=== PATIENT | female | born 1990 | race Caucasian/White ===

== ENCOUNTER → 2018-04-07 | Outpatient (CLI) | payer OTHER ==
[2018-04-07 10:21] VITALS: BP 101/63; PULSE 66; TEMP 98.5; BMI 20.5
--- NOTE | 2018-04-07 10:55 | P.GSHP ---
History of Present Illness H&P Date: 04/07/18 Patient is a 27 year old white female who breast fed two children, she finished about one year ago. She than decided she wanted to have augmentation. On a routine exam she felt two lumps under her right nipple. She saw her shuttle truck driver and felt her nodes under her right arm were enlarge. She had an ultrasound at [facility] and told felt benign and to watch for changes and to re- evaluate in 6 months. She is very anxious about it and is checking constantly. she feels soreness under her right arm. No nipple discharge. She had soreness of both breast before her ovulation cycle, and before her periods. She doesn't usually have this type of pain. No pain now. family history; 1. paternal grandmother paternal great aunts to the patient, 7 sisters with breast cancer past surgical history: 1. T&A 2. muscle biopsy left arm medical history: 1. anxiety scoial history: smoke: none alcohol: rare drugs: none menstral: 14 : two first at 21 breast fed both for > year periods regular: having peroid now - Constitutional Constitutional: Denies chills, Denies fever - EENT Eyes: denies blurred vision, denies pain Ears: deny: decreased hearing, tinnitus Ears, nose, mouth and throat: Reports headache, Denies sore throat - Breasts Breasts: bilateral: as per HPI - Cardiovascular Cardiovascular: Denies chest pain, Denies shortness of breath - Respiratory Respiratory: Denies cough, Denies 7 - Gastrointestinal Comment: IBS Gastrointestinal: Reports diarrhea, Denies abdominal pain, Denies nausea, Denies vomiting - Genitourinary (Female) Genitourinary: Denies dysuria, Denies hematuria - Musculoskeletal Musculoskeletal: Denies myalgias - Integumentary Comment: HIVES AT TIMES Integumentary: Denies pruritus, Denies rash - Neurological Neurological: Denies numbness, Denies weakness - Endocrine Comment: 5 pounds weight loss Endocrine: Reports weight change, Denies fatigue - Hematologic/Lymphatic Comment: none - Allergic/Immunologic Allergic/Immunologic: Reports seasonal allergies Past Medical History Past Medical History: Asthma History of Any Multi-Drug Resistant Organisms: None Reported Past Surgical History: Adenoidectomy, Tonsillectomy Additional Past Surgical History / Comment(s): MUSCLE BX LEFT UPPER ARM Past Psychological History: Anxiety Smoking Status: Never smoker - Past Family History Mother Additional Family Medical History / Comment(s): CPT2;. myotonia congenita Brother(s) Family Medical History: Asthma Medications and Allergies Home Medications Medication Instructions Recorded Confirmed Type Calcium Phos/Vit D3/Mag Oxide 3 cap PO DAILY 04/07/18 04/07/18 History [Posture-D Caplet] Ibuprofen [Motrin] 800 mg PO DAILY PRN 04/07/18 04/07/18 History tiZANidine [Zanaflex] 2 mg PO DAILY PRN 04/07/18 04/07/18 History Surgical - Exam Vital Signs Temp Pulse BP Pulse Ox 98.5 F 66 101/63 97 04/07/18 10:15 04/07/18 10:15 04/07/18 10:15 04/07/18 10:15 - General moderate distress - Eyes normal ocular movement, no icteric - ENT no hearing loss, no congestion - Neck no masses, trachea midline - Respiratory normal respiratory effort, clear to auscultation - Cardiovascular Rhythm: regular Heart Sounds: normal: S1, S2 - Abdomen Abdomen: soft, non tender, no guarding, no rigid, no rebound - Integumentary tattoo - Musculoskeletal normal gait, normal posture - Psychiatric oriented to time, oriented to person, oriented to place, speech is normal, memory intact Breast examination: Right: Fibrocystic changes with small fibrocystic changes noted particularly in the periareolar area noted dominant masses or nodules of concern Right axilla: Small axillary node approximately 1 cm in size and mobile Left breast: Fibrocystic changes Left axilla: No adenopathy of concern Assessment and Plan Assessment: Impression/plan: 1. Bilateral fibrocystic breast changes 2. Anxiety with hives 3. Anxiety leading to TMJ discomfort leading to headaches Plan: 1. Bilateral breast ultrasound and ultrasound of the right axilla 2. Treatment of anxiety as per primary care doctor CC: Félix
--- NOTE | 2018-04-07 12:18 | USB ---
Reason for exam: clinical finding. Physical Findings: Breast exam performed by Dr. Del Valle. US Breast BILAT Technologist: Alexus Cedeño, RT (R)(M) Right complete breast ultrasound includes all four quadrants, the retroareolar region and axilla. Finding demonstrates a 4 x 4 x 2mm oval, cystic lesion at 6 o'clock and axilla demonstrates normal lymph nodes. Left complete breast ultrasound includes all four quadrants, the retroareolar region and axilla. Finding demonstrates no cystic or solid lesion seen and axilla demonstrates normal lymph nodes. These results were verbally communicated with the patient and result sheet given to the patient on 04/07/18. ASSESSMENT: Benign, BI-RAD 2 RECOMMENDATION: Routine screening mammogram of both breasts at age 40. Manage patient on a clinical basis.
== END | disposition home or self-care (01) ==
LOC: WWCWWP 10:09
PROVIDERS: ATTEND Surgery
DX: N63.10 Unspecified lump in the right breast, unspecified quadrant (principal)